=== PATIENT | male | born 1960 | race Caucasian/White ===

== ENCOUNTER 2018-11-08 05:14 | Day surgery (SDC) | payer OTHER ==
[~2018-11-08] VITALS: Ht 188 cm; Wt 96.2 kg
[2018-11-08 05:58] LABS: HEMATOCRIT 42.7 % (42.0-54.0); HEMOGLOBIN 15.4 g/dL (13.5-17.5); MCH 32.3 pg (26.0-34.0); MCHC 36.1 g/dL (31.0-37.0); MCV 89.5 fL (80.0-100.0); MEAN PLATELET VOLUME 10.2 fL (7.4-10.4); RBC 4.77 10x6/uL (4.20-6.10); RDW 12.6 % (11.5-14.5); WBC 8.1 10x3/uL (4.8-10.8)
[2018-11-08 06:07] LABS: APTT 30.8 SECONDS (22.8-39.4); INR 1.11 (0.85-1.17); PROTIME 13.8 SECONDS (11.6-15.0)
[2018-11-08 06:14] LABS: ALBUMIN 3.6 g/dL (3.4-5.0); ALKALINE PHOSPHATASE 62 U/L (46-116); ALT (SGPT) 153 U/L (10-68); BILIRUBIN - TOTAL 0.79 mg/dL (0.2-1.3); CALC OSMOLALITY 278 mosm/kg (275-300); CALCIUM 8.6 mg/dL (8.5-10.1); CARBON DIOXIDE 26.5 mmol/L (21.0-32.0); CHLORIDE - SERUM 105 mmol/L (98-107); CREATININE - SERUM 0.8 mg/dL (0.6-1.3); GLUCOSE 90 mg/dL (74-106); PROTEIN - SERUM 8.1 g/dL (6.4-8.2); SODIUM 139 mmol/L (136-145); UREA NITROGEN 14 mg/dL (7-18); eGFR NON AFRICAN AMERICAN > 90 mL/min (90-120)
[2018-11-08 06:18] VITALS: BP 111/66; Ht 188 cm; Wt 96.2 kg
--- NOTE | 2018-11-08 13:50 | NUR ---
REC'D FROM [facility]. RELATES HE NEEDS TO "PEE" ALTHOUGH HE HAS A URINAL. BLOODY DRAINAGE FROM [employer] ARE[employer] INCISION. AMBULATED TO BATHROOM AND VOIDED, [employer] AT BEDSIDE.
--- NOTE | 2018-11-08 14:00 | NUR ---
BACK TO BED. DRESSING REINFORCED TO NAV[employer] AREA. EATING FL DIET.
== END 2018-11-08 14:50 | disposition home or self-care (01) ==
LOC: D.OPS 05:14
PROVIDERS: Anesthesiology; ATTEND Surgery
DX: K80.00 Calculus of gallbladder with acute cholecystitis without obstruction (principal); K74.0 Hepatic fibrosis; B18.9 Chronic viral hepatitis, unspecified; Z01.812 Encounter for preprocedural laboratory examination

== ENCOUNTER → 2019-02-07 07:10 | Outpatient (CLI) | payer OTHER ==
[2018-11-08 06:18] VITALS: BMI 27.2
[2019-02-07 08:48] LABS: BILIRUBIN - DIRECT 0.2 mg/dL (0.00-0.30); BILIRUBIN - INDIRECT 0.6 mg/dL (0.00-1.00); BILIRUBIN - TOTAL 0.8 mg/dL (0.2-1.3); PROTEIN - SERUM 8.2 g/dL (6.4-8.2)
[2019-02-11 20:06] LABS: HCVGENO - HEP C QUANT 632000 IU/mL (()); HCVGENO - LOG 10 5.801 (())
== END | disposition home or self-care (01) ==
LOC: D.MRI 02-05 08:00
PROVIDERS: ATTEND Internal Medicine Gastroenterology
DX: K80.50 Calculus of bile duct without cholangitis or cholecystitis without obstruction (principal); Z86.19 Personal history of other infectious and parasitic diseases